=== PATIENT | female | born 1945 | race Caucasian/White ===

== ENCOUNTER → 2016-08-19 | Outpatient (CLI) | payer OTHER ==
[~2016-08-19] MED LIST: ANASTROZOLE1 MG PO; CYANOCOBALAM1000 MCG PO; ELIQUIS5 MG PO; LEVAQUIN750 MG PO; LOPRESSOR PO; LYRICA50 MG PO; MEDROL DOSEPAK4 MG PO; PERCOCET5/325 PO; TOPROL XL 50 MG50 MG PO; XARELTO15 MG PO
--- NOTE | ~2016-08-19 | CT4 ---
[facility] A Service of [facility] RADIOLOGY TEXT RESULTS PATIENT: AVA EMERY LOCATION: [facility]AT : 49 UNIT #: [id number] AGE: [address]: Samreen Wilcox MD SEX: F ORDER DR: [id number] [facility] [address] [place], [place] [address] [id number] O MR#: [id number] Acc #: [id number] NAME: AVA EMERY : 1945 SEX: F STUDY DATE/TIME: 08/19/2016 9:17 UNIT: [facility] ROOM: STUDY DESCRIPTION: CT Abd and Pelv Wo Cont Attending Physician: Samreen Wilcox M.D. Referring Physician: Samreen Wilcox M.D. Ordering Physician: Samreen Wilcox M.D. Primary Care Physician: Ama Horne M.D. MEDICAL IMAGING REPORT This report is preliminary unless electronic signature is present EXAM CT abdomen and pelvis without contrast DATE 08/19/2016 HISTORY Breast cancer with history of left mastectomy. Complains of chest pain near the left breast. Shortness of breath upon exertion. Constipation. COMPARISON PET CT 10/24/2015. No previous dedicated CT abdomen and pelvis at this institution for comparison. PROCEDURE 5 mm axial images from the lung bases through the lesser trochanters without intravenous or enteric contrast administration. Sagittal and coronal reformatted images were obtained. Special note: The study was requested to be performed with IV contrast by the referring physician. However, the patient refused IV contrast, afraid that it would cause kidney disease. The technologist took great effort to explain the importance of IV contrast administration for this examination via an historical interpreter, the patient still refused. We can comply with her wishes. FINDINGS Abdomen findings: The right kidney is moderately atrophic with multiple nonobstructing right intrarenal calculi, the largest in the lower pole measuring 1.4 cm. Left kidney has a normal noncontrast appearance. Cholecystectomy changes are present. Noncontrast appearance of the liver, spleen, pancreas, adrenals within normal limits. Unopacified bowel appears nonthickened and noninflamed. There is a large multilobulated STS. [facility] A Service of [facility] RADIOLOGY TEXT RESULTS PATIENT: AVA EMERY LOCATION: [facility] : 47 UNIT #: [id number] AGE: [address]: Samreen Wilcox MD SEX: F ORDER DR: umbilical hernia containing omental fat and segments of transverse colon, without evidence of colonic obstruction or inflammatory change. No pathologic adenopathy is seen, and no ascites is evident. Limited evaluation of bowel due to lack of enteric contrast. Pelvis findings: Urinary bladder, uterus and rectum appear unremarkable. No pathologic pelvic adenopathy is seen. Shotty bilateral inguinal and external iliac chain lymph nodes are favored to represent benign reactive findings, and appear similar to the PET CT from 10/24/2015. 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 No suspicious osseous lesions are identified. IMPRESSION 1. No convincing evidence of metastatic disease in the abdomen or pelvis. The study is limited due to lack of IV and oral contrast. Please refer to the above special note. 2. Large ventral abdominal hernia, complex, containing omental fat and nonobstructed transverse colon. 3. Moderate right renal atrophy with multiple nonobstructing right renal stones. 4. Cholecystectomy. 5. Bilateral L5 spondylitic defects with grade 1/2 anterolisthesis L5 upon S1. 6. CT chest performed on this same day has been dictated separately. Dictated by... Annemarie Brooke M.D. THIS IS AN ELECTRONICALLY VERIFIED REPORT Annemarie Brooke M.D. at 08/20/2016 9:[address] [facility]/neri TD: 08/19/2016 13:27 JOB #: [id number] MEDICAL IMAGING REPORT Page 1 of 1 COPY
--- NOTE | ~2016-08-19 | CT57 ---
[facility] A Service of [facility] & [facility] RADIOLOGY TEXT RESULTS PATIENT: AVA EMERY LOCATION: [facility] : 49 UNIT #: [id number] AGE: [address]: Samreen Wilcox MD SEX: F ORDER DR: [id number] [facility] [address] [place], [place] [address] [id number] O MR#: [id number] [facility] #: [id number] NAME: AVA EMERY : 1945 SEX: F STUDY DATE/TIME: 08/19/2016 9:17 UNIT: [facility] ROOM: STUDY DESCRIPTION: CT Chest Wo Cont Attending Physician: Samreen Wilcox M.D. Referring Physician: Samreen Wilcox M.D. Ordering Physician: Samreen Wilcox M.D. Primary Care Physician: Ama Horne M.D. MEDICAL IMAGING REPORT This report is preliminary unless electronic signature is present EXAM CT chest without contrast DATE 08/19/2016 HISTORY 71-year-old female with breast cancer and left mastectomy. Currently complains of chest pain near the left breast, shortness of breath upon exertion, constipation. COMPARISON CTA chest PE protocol 09/29/2015. PROCEDURE 5 mm axial images were acquired from the thoracic inlet through the upper abdomen without IV contrast. SPECIAL NOTE: The study was requested to be performed with IV contrast. However, the patient refused IV contrast, apparently afraid of recurring renal disease. The technologist took great care in explaining the importance of IV contrast administration for detection of disease, via an auctioneer automobile, and she still refused. We complied with her wishes. This CT exam was performed with one or more of the following radiation dose reduction techniques: automatic control, adjustment of mA and/or kV according to patient size, and iterative reconstruction. FINDINGS Left mastectomy changes are present. Previously described left axillary adenopathy has resolved, and there is an ill-defined area of presumed scarring with postsurgical seroma in the left axilla measuring about 1.8 x 0.8 cm in the coronal plane. No new axillary adenopathy is identified. STS. [facility] A Service of [facility] & [facility] RADIOLOGY TEXT RESULTS PATIENT: AVA EMERY LOCATION: [facility] : 47 UNIT #: [id number] AGE: [address]: Samreen Wilcox MD SEX: F ORDER DR: Miguel Angel right axillary lymph nodes are present, one of the largest measuring 9 mm short axis, unchanged from 09/29/2015. No definite mediastinal, hilar or axillary adenopathy is appreciated, although evaluation is limited due to lack of IV contrast. Small esophageal hiatal hernia is incidentally noted. Limited evaluation of lungs due to obscuration by respiratory motion. Stable somewhat geographic areas of ground-glass density are present within both lungs, thought to represent areas of chronic scarring or fibrosis, but no definite acute airspace disease is identified. Advanced degenerative type changes of the left shoulder with flattening of the left humeral head and narrowing of the glenohumeral joint space with marginal osteophyte formation, similar to prior. No convincing evidence of osseous metastatic disease in the chest. Degenerative changes in the thoracic spine. IMPRESSION 1. No convincing evidence of metastatic disease progression in the chest. 2. Previously described pathologic left axillary adenopathy on the 09/29/2015 examination is no longer present, and there is an area of presumed scarring and chronic postsurgical seroma in the left axilla at this same location. 3. Geographic ground-glass changes in both lungs appear similar to previous study, favored to represent chronic fibrosis or scarring. 4. Left mastectomy. 5. 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 6. Not mentioned in the body of report, fluid collection is seen adjacent to the right shoulder joint soft tissues measuring 2.9 x 2.2 cm, favored to represent joint effusion. 7. CT abdomen and pelvis performed on this same date has been dictated separately. Dictated by... Annemarie Brooke M.D. THIS IS AN ELECTRONICALLY VERIFIED REPORT Annemarie Brooke M.D. at 08/20/2016 9:40 AM [facility]/maura TD: 08/19/2016 12:24 JOB #: [id number] MEDICAL IMAGING REPORT Page 1 of 1 COPY
== END | disposition home or self-care (01) ==
LOC: CCAT 08:30
DX: Z08 Encounter for follow-up examination after completed treatment for malignant neoplasm (principal); K43.9 Ventral hernia without obstruction or gangrene; N26.1 Atrophy of kidney (terminal); N20.0 Calculus of kidney; L76.34 Postprocedural seroma of skin and subcutaneous tissue following other procedure; Z90.49 Acquired absence of other specified parts of digestive tract; M43.17 Spondylolisthesis, lumbosacral region; Z90.12 Acquired absence of left breast and nipple; Z85.3 Personal history of malignant neoplasm of breast
CPT/HCPCS: 71250; 74176